=== PATIENT | male | born 1995 | race Caucasian/White ===

== ENCOUNTER 2024-12-24 17:24 | Emergency (ER) | payer BC ==
[2024-12-24] MEDS: Sodium Chloride 0.9% 1,000 ML IV ONE (18:07)
[2024-12-24] MEDS: Ondansetron 4 MG/2 ML SDV IVPUSH ONE (18:08)
[2024-12-24 18:14] LABS: BASOPHILS ABSOLUTE AUTO 0.04 K/uL (0.00-0.20); BASOPHILS PERCENT AUTO 0.5 % (0.0-1.0); EOSINOPHILS ABSOLUTE AUTO 0.31 K/uL (0.00-0.45); EOSINOPHILS PERCENT AUTO 3.9 % (0.0-6.0); HEMATOCRIT 41.8 % (42.0-52.0); HEMOGLOBIN 14.7 g/dL (14.0-18.0); IMMATURE GRAN ABSOLUTE AUTO 0.04 K/uL (0.00-0.05); IMMATURE GRAN PERCENT AUTO 0.5 % (0.0-0.4); LYMPHOCYTES ABSOLUTE AUTO 3.41 K/uL (1.00-4.80); LYMPHOCYTES PERCENT AUTO 43.2 % (24.0-44.0); MEAN CORPUSCULAR HEMOGLOBIN 28.7 pg (28.0-32.0); MEAN CORPUSCULAR HGB CONC 35.2 g/dL (32.0-36.0); MEAN CORPUSCULAR VOLUME 81.5 fL (83.0-99.0); MEAN PLATELET VOLUME 8.5 fL (9.4-12.4); MONOCYTES ABSOLUTE AUTO 0.38 K/uL (0.00-0.80); MONOCYTES PERCENT AUTO 4.8 % (0.0-8.0); NEUTROPHILS ABSOLUTE AUTO 3.71 K/uL (1.80-7.70); NEUTROPHILS PERCENT AUTO 47.1 % (41.0-71.0); PLATELET COUNT,PLT 328 K/uL (150-400); RED BLOOD CELL COUNT 5.13 M/uL (4.52-5.90); WHITE BLOOD CELL COUNT,WBC 7.89 K/uL (3.9-11.3)
[2024-12-24 18:42] LABS: A/G RATIO 1.3 (0.9-1.6); ALBUMIN 3.8 g/dL (3.4-5.0); BILIRUBIN TOTAL 0.7 mg/dL (0.2-1.0); CALCIUM 8.8 mg/dL (8.5-10.1); CARBON DIOXIDE,CO2 27.3 mmol/L (21.0-32.0); CREATININE 1.3 mg/dL (0.8-1.3); EST CRCL DRUG DOSING (CG) 90.91 mL/min; POTASSIUM,K 4.1 mmol/L (3.5-5.1); PROTEIN TOTAL,TP 6.8 g/dL (6.4-8.2)
[2024-12-24 19:17] LABS: APPEARANCE,URINE CLEAR; BILIRUBIN,URINE NEGATIVE (NEGATIVE); COLOR,URINE YELLOW; GLUCOSE,URINE 250 mg/dL (NEGATIVE); KETONES,URINE NEGATIVE (NEGATIVE); LEUKOCYTE ESTERASE,URINE NEGATIVE (NEGATIVE); NITRITE,URINE NEGATIVE (NEGATIVE); OCCULT BLOOD,URINE NEGATIVE (NEGATIVE); PROTEIN,URINE NEGATIVE (NEGATIVE)
== END 2024-12-24 19:28 | disposition home or self-care (01) ==
LOC: MW.ED 17:24
DX: K52.9 Noninfective gastroenteritis and colitis, unspecified (principal); Z75.8 Other problems related to medical facilities and other health care
CPT/HCPCS: 36415; 80053; 81003; 83690; 85025; 87428; 96361; 96374; 99284; J2405; J7030; 99283

== ENCOUNTER 2025-09-03 18:06 | Emergency (ER) | payer SELFPAY ==
[2025-09-03] MEDS: Lactated Ringers 1,000 ML IV ONE (19:31)
[2025-09-03] MEDS: Alum Hydrox/Mag Hydrox/Simeth 15 ML, Lidocaine 2% 5 ML PO ONE (19:38)
[2025-09-03] MEDS: Ondansetron 4 MG/2 ML SDV IVPUSH ONE (19:38)
[2025-09-03 19:46] LABS: BASOPHILS ABSOLUTE AUTO 0.05 K/uL (0.00-0.20); BASOPHILS PERCENT AUTO 0.6 % (0.0-1.0); EOSINOPHILS ABSOLUTE AUTO 0.20 K/uL (0.00-0.45); EOSINOPHILS PERCENT AUTO 2.5 % (0.0-6.0); IMMATURE GRAN ABSOLUTE AUTO 0.02 K/uL (0.00-0.05); IMMATURE GRAN PERCENT AUTO 0.2 % (0.0-0.4); LYMPHOCYTES ABSOLUTE AUTO 2.80 K/uL (1.00-4.80); LYMPHOCYTES PERCENT AUTO 34.7 % (24.0-44.0); MEAN PLATELET VOLUME 8.2 fL (9.4-12.4); MONOCYTES ABSOLUTE AUTO 0.48 K/uL (0.00-0.80); MONOCYTES PERCENT AUTO 5.9 % (0.0-8.0); NEUTROPHILS ABSOLUTE AUTO 4.53 K/uL (1.80-7.70); NEUTROPHILS PERCENT AUTO 56.1 % (41.0-71.0); NRBC ABSOLUTE 0.00 K/uL (0.00-0.02); NRBC PERCENT 0.0 /100WBC (0.0-0.2); PLATELET COUNT,PLT 338 K/uL (150-400); RED BLOOD CELL COUNT 5.36 M/uL (4.52-5.90); WHITE BLOOD CELL COUNT,WBC 8.08 K/uL (3.9-11.3)
[2025-09-03 20:15] LABS: A/G RATIO 1.2 (0.9-1.6); ALANINE AMINOTRANSFERASE,ALT 66.0 IU/L (14-63); ASPARTATE AMNIOTRANSFERASE,AST 21.0 IU/L (15-37); BILIRUBIN TOTAL 1.0 mg/dL (0.2-1.0); BLOOD UREA NITROGEN,BUN 12.0 mg/dL (7.0-18.0); CARBON DIOXIDE,CO2 28.6 mmol/L (21.0-32.0); CHLORIDE,CL 103.0 mmol/L (98-107); CREATININE 1.1 mg/dL (0.8-1.3); EST CRCL DRUG DOSING (CG) 106.48 mL/min; GLUCOSE RANDOM 99.0 mg/dL (74-106); POTASSIUM,K 4.3 mmol/L (3.5-5.1); PROTEIN TOTAL,TP 7.4 g/dL (6.4-8.2); SODIUM,NA 140.0 mmol/L (136-148)
[2025-09-03 20:16] LABS: ESTIMATED GFR 94.0 mL/min (>60)
== END 2025-09-03 20:39 | disposition home or self-care (01) ==
LOC: MW.ED 18:06
DX: B34.9 Viral infection, unspecified (principal); Z87.891 Personal history of nicotine dependence
CPT/HCPCS: 36415; 80053; 85025; 87428; 87651; 96361; 96374; 99284; A9270; J2405; J3490; J7120